=== PATIENT | male | born 1945 | race Two or more races ===

== ENCOUNTER 2018-11-19 19:18 | Inpatient (IN) | payer MEDICARE, OTHER ==
[~2018-11-19] VITALS: Ht 172.7 cm; Wt 75.7 kg
--- NOTE | 2018-11-19 19:20 | NUR ---
Pt bib ambulnz unit #[id number] from [facility] for medical clearance. Pt is on a 5150 hold for DTS. Upon assessment, patient is AAO x 4, calm and cooperative. Safety precautions implemented. Nursing supervisor blast furnace called for 1:1 sitter for safety. All belongings placed at nursing station. Will continue to monitor closely.
--- NOTE | 2018-11-19 19:30 | NUR ---
1:1 sitter at bedside for safety.
[2018-11-19] MEDS ORDERED: APIX5TAB4 PO (19:51)
[2018-11-19] MEDS ORDERED: MULT-331 PO (19:51)
[2018-11-19] MEDS ORDERED: THIA100T13 PO (19:51)
[2018-11-19] MEDS ORDERED: PANT40TA2 PO (19:51)
[2018-11-19] MEDS ORDERED: FOLI1TAB16 PO (19:51)
[2018-11-19] MEDS ORDERED: ACET-2154 PO (19:51)
[2018-11-19] MEDS ORDERED: CYAN10009 PO (19:51)
[2018-11-19] MEDS ORDERED: CHOL100043 PO (19:51)
[2018-11-19] MEDS ORDERED: ACETAMINOPHEN 325 MG TABLET PO PRN (20:45)
[2018-11-19] MEDS ORDERED: MAG HYDROX/AL HYDROX/SIMETH 30 ML LIQUID UDC PO PRN (20:45)
[2018-11-19] MEDS ORDERED: MAGNESIUM HYDROXIDE 30 ML LIQUID UDC PO PRN (20:45)
[2018-11-19] MEDS ORDERED: LORAZEPAM 0.5 MG TABLET PO PRN ×2 (20:45→21:45)
[2018-11-19] MEDS ORDERED: TEMAZEPAM 7.5 MG CAPSULE PO PRN (20:45)
--- NOTE | 2018-11-19 20:57 | NUR ---
Pt. admitted to [facility] , under care of Dr. Canada/Westley Belongs List completed
[2018-11-19 21:50] VITALS: BP 145/78
--- NOTE | 2018-11-19 22:00 | NUR ---
GPS: Admitted to unit earlier a 73 yr.old male in stable condition under the care of /GARFIELD Christy. Pt.is on a 72 hour hold for DTS/GD. Pt. lives at [facility] in [place] where he tried to commit suicide by lacerating his left forearm using a plastic knife. Pt.is A/O x4. Calm,cooperative and pleasant during admission process. Still c/o feeling depressed but contracts for safety when asked. 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 Pt's rights hand book and advisement handed to pt.at time of admission. Paperworks signed,personal belongings list completed and skin assessment completed. Psychiatrist and dinkey motor operator were both notified of pt's arrival to the unit. Pt.gave consent to notify pt's daughter "Charisma"of his admission to the unit. Left message on her voicemail. Will monitor closely. Suicide precautions observed.
[2018-11-20 07:30] VITALS: BP_SYST 109; BP_SYST 113; BP_DIAS 64; BP_DIAS 72
[2018-11-20] MEDS ORDERED: PNEUMOCOCCAL 23-VAL P-SAC VAC 0.5 ML VIAL IM ONE (10:00)
[2018-11-20 16:03] VITALS: BP 113/59
[2018-11-20] MEDS ORDERED: SERTRALINE HCL 50 MG TABLET PO SCH (17:00)
[2018-11-20] MEDS ORDERED: ACETAMINOPHEN 325 MG TABLET PO SCH (18:15)
[2018-11-20 20:30] VITALS: BP 130/65
[2018-11-21] MEDS: PANTOPRAZOLE SODIUM 40 MG TABLET.DR PO SCH (06:26)
[2018-11-21 07:13] LABS: BASOPHILS % (AUTO) 0.7 % (0.0-2.0); EOSINOPHILS # (AUTO) 0.4 K/uL (0.0-0.7); EOSINOPHILS % (AUTO) 6.4 % (0.0-7.0); HEMATOCRIT 37.3 % (36.7-47.1); HEMOGLOBIN 12.5 g/dL (12.5-16.3); LYMPHOCYTES # (AUTO) 2.1 K/uL (20.0-40.0); MEAN CORPUSCULAR HEMOGLOBIN 29.5 uug (23.8-33.4); MEAN CORPUSCULAR HGB CONC 33 g/dL (32.5-36.3); MEAN CORPUSCULAR VOLUME 88.3 fL (73.0-96.2); MONOCYTES # (AUTO) 0.3 K/uL (2.0-10.0); MONOCYTES % (AUTO) 5.4 % (0.0-11.0); NEUTROPHILS # (AUTO) 3.5 K/uL (1.8-8.9); NEUTROPHILS % (AUTO) 54.5 % (38.5-71.5); PLATELET COUNT (AUTO) 223 K/uL (152-348); RED BLOOD CELL COUNT(AUTO) 4.23 MIL/uL (4.06-5.63); WHITE BLOOD COUNT (AUTO) 6.4 K/uL (3.6-10.2)
[2018-11-21 07:33] LABS: ALANINE AMINOTRANSFERASE 13 U/L (16-63); ALKALINE PHOSPHATASE 111 U/L (50-136); ASPARTATE AMINOTRANSFERASE 11 U/L (15-37); BILIRUBIN,TOTAL 0.4 mg/dL (0.2-1.0); CARBON DIOXIDE 30 mmol/L (21-32); CHLORIDE 103 mmol/L (98-107); CREATININE 0.9 mg/dL (0.6-1.3); GLUCOSE 104 mg/dL (74-106); MAGNESIUM 1.8 mg/dL (1.8-2.4); PHOSPHOROUS 3.6 mg/dL (2.5-4.9); POTASSIUM 4.1 mmol/L (3.5-5.1)
[2018-11-21 08:16] LABS: UREA NITROGEN, BLOOD 15 mg/dL (7-18)
[2018-11-21 08:20] VITALS: BP 94/56
[2018-11-21] MEDS: CHOLECALCIFEROL 1,000 UNIT TABLET PO SCH ×2 (08:20→16:05)
[2018-11-21] MEDS: THIAMINE HCL 100 MG TABLET PO SCH (08:20)
[2018-11-21] MEDS: CYANOCOBALAMIN 1,000 MCG TABLET PO SCH (08:20)
[2018-11-21] MEDS: FOLIC ACID 1 MG TABLET PO SCH (08:20)
[2018-11-21] MEDS ORDERED: APIXABAN 5 MG TABLET PO ONE (09:00)
[2018-11-21 16:00] VITALS: BP 108/53
[2018-11-21] MEDS: SERTRALINE HCL 50 MG TABLET PO SCH (16:05)
[2018-11-21] MEDS: APIXABAN 5 MG TABLET PO SCH (16:07)
[2018-11-21 19:56] VITALS: BP 106/50
[2018-11-22] MEDS: PANTOPRAZOLE SODIUM 40 MG TABLET.DR PO SCH (06:46)
[2018-11-22 07:30] VITALS: BP 97/67
[2018-11-22] MEDS: CHOLECALCIFEROL 1,000 UNIT TABLET PO SCH ×2 (08:35→16:55)
[2018-11-22] MEDS: FOLIC ACID 1 MG TABLET PO SCH (08:35)
[2018-11-22] MEDS: THIAMINE HCL 100 MG TABLET PO SCH (08:35)
[2018-11-22] MEDS: APIXABAN 5 MG TABLET PO SCH ×2 (08:36→16:57)
[2018-11-22] MEDS: CYANOCOBALAMIN 1,000 MCG TABLET PO SCH (08:53)
--- NOTE | 2018-11-22 12:39 | NUR ---
Initial DC Instructions: Patient is a current resident at [facility] [[address] [facility], [place] [address]; [phone]]. Per pt, he does not want to return there, but instead would like to move to [place] with his "friend" and live with him. When asked about who the friend is, pt stated, "I don't want to disclose that information." SW provided education about SW role and the necessity for a safe discharge plan. Spoke with patient's daughter, Charisma ([phone]) who reports that she is DPOA for Healthcare for the patient. SW requested paperwork. Per daughter, the pt has long drug/ETOH abuse history and expressed concern that if pt moves to [place] with his friend, then he will continue to use there and stop taking his medications. Spoke with Carline Strauss at [facility] ([phone]) who states that the patient is welcome back to their facility when pt is stable for discharge. SW will continue to collaborate with pt, family, and MD regarding most appropriate discharge plans for this patient. SW will form a safe and proper discharge.
[2018-11-22 15:18] VITALS: BP 131/55
--- NOTE | 2018-11-22 15:53 | NUR ---
Firearms Report: ABBY completed and submitted [employer] Firearms report for 5150 DTS and GD certifications.
[2018-11-22] MEDS: SERTRALINE HCL 50 MG TABLET PO SCH (16:55)
[2018-11-22 20:03] VITALS: BP 145/96
[2018-11-23] MEDS: PANTOPRAZOLE SODIUM 40 MG TABLET.DR PO SCH (06:32)
[2018-11-23 07:30] VITALS: BP 107/71
[2018-11-23] MEDS: THIAMINE HCL 100 MG TABLET PO SCH (08:40)
[2018-11-23] MEDS: CHOLECALCIFEROL 1,000 UNIT TABLET PO SCH ×2 (08:40→17:16)
[2018-11-23] MEDS: CYANOCOBALAMIN 1,000 MCG TABLET PO SCH (08:40)
[2018-11-23] MEDS: FOLIC ACID 1 MG TABLET PO SCH (08:40)
[2018-11-23] MEDS: APIXABAN 5 MG TABLET PO SCH ×2 (08:41→17:21)
[2018-11-23 16:14] VITALS: BP 132/58
[2018-11-23] MEDS ORDERED: SERTRALINE HCL 50 MG TABLET PO SCH (17:00)
[2018-11-23 20:08] VITALS: BP 136/71
[2018-11-24] MEDS: PANTOPRAZOLE SODIUM 40 MG TABLET.DR PO SCH (06:42)
[2018-11-24 07:30] VITALS: BP 122/47
[2018-11-24] MEDS: APIXABAN 5 MG TABLET PO SCH ×2 (08:43→16:17)
[2018-11-24] MEDS: CYANOCOBALAMIN 1,000 MCG TABLET PO SCH (08:45)
[2018-11-24] MEDS: THIAMINE HCL 100 MG TABLET PO SCH (08:45)
[2018-11-24] MEDS: FOLIC ACID 1 MG TABLET PO SCH (08:45)
[2018-11-24] MEDS: CHOLECALCIFEROL 1,000 UNIT TABLET PO SCH ×2 (08:45→16:16)
[2018-11-24] MEDS: SERTRALINE HCL 50 MG TABLET PO SCH ×2 (12:49→16:16)
--- NOTE | 2018-11-24 15:52 | NUR ---
DC Planning Note: SW met with patient at bedside to discuss discharge planning. Patient reported that he does not want to return to his [facility] [Address: [address] [place] [address]; ] stating, "That place is going to kill me...being locked up there is no place to live." SW provided opportunity for pt to express his concerns and ventilate his feelings. SW explored placement options with him including SNF vs. B&C placement. Patient refused. Patient reports that he would like to live with his friend, "Eric" in [place]. When SW inquired about Eric's contact information and address, pt stated, "He [Eric] doesn't want to be bothered by hospitals." SW provided education on need for safe discharge plan that includes where he is going and lathe operator contact lens, and pt stated, "I will sign whatever you want me to sign so that I can leave here." Pt reported that he would be willing to call "Eric" to find out his address and stated that he will provide it to the SW when he has it. SW assisted the pt in retrieving his phone from the safe. SW to follow-up with pt in the morning about Eric's address. ABBY alerted History Teacher, Sharon Harmon, as well. ABBY will continue to follow-up.
[2018-11-24 16:00] VITALS: BP 109/51
--- NOTE | 2018-11-24 17:00 | NUR ---
Process Group Note: Patients were asked to answer the question of "What is one thing you would change about yourself and why? Subjective: "..." Objective: Patient was asleep in bed and unable to be woken up to attend group. Assessment: Patient will need encouragement to attend group more often. Plan: Encourage group attendance as scheduled. tailings worker will continue to ask patient to attend group.
[2018-11-24 20:00] VITALS: BP 158/71
[2018-11-25] MEDS: PANTOPRAZOLE SODIUM 40 MG TABLET.DR PO SCH (06:24)
--- NOTE | 2018-11-25 06:52 | NUR ---
PATIENT SLEPT FOR APPROX 7HRS THROUGH THE NIGHT. PICTURE WAS TAKEN OF HIS LEFT FOREARM ANTERIOR ASPECT WOUND: APPROX 6CM LONG HEALING WELL, NO SWELLING NO DISCHARGE WERE APPRECIATED. NO S/S OF INFECTION WERE NOTED. PATIENT DENIED PAIN OR DISCOMFORT. MEDICATION COMPLIANT, LOW MOOD, BLUNTED AFFECT, WITHDRAWN, PLEASANT AND COOPERATIVE UPON APPROACHED. WILL CONTINUE TO MONITOR.
[2018-11-25 07:30] VITALS: BP 129/48
[2018-11-25] MEDS: FOLIC ACID 1 MG TABLET PO SCH (08:13)
[2018-11-25] MEDS: THIAMINE HCL 100 MG TABLET PO SCH (08:13)
[2018-11-25] MEDS: CHOLECALCIFEROL 1,000 UNIT TABLET PO SCH ×2 (08:14→16:20)
[2018-11-25] MEDS: CYANOCOBALAMIN 1,000 MCG TABLET PO SCH (08:14)
[2018-11-25] MEDS: APIXABAN 5 MG TABLET PO SCH ×2 (08:15→16:54)
--- NOTE | 2018-11-25 10:27 | NUR ---
DC Planning: At 0950: ABBY and SS Director, Sharon attempted to contact patient's daughter, Charisma ([phone]) to request for DPOA paperwork again. There was no answer and SW left a message for a return call. At 1015: Spoke with Rocio at pt's [facility] ([phone]). SW inquired about pt's dementia diagnosis, Physician's Report, and DPOA. Per Rocio, the patient was diagnosed with dementia in July 2018 while he was at the DC hospital. During that time, Rocio reports that the DC appointed pt's daughter, Charisma to be responsible for his healthcare decisions. ABBY asked Rocio to fax those documents to the hospital, and she was agreeable. SW awaiting fax and will continue to follow-up.
[2018-11-25] MEDS: SERTRALINE HCL 50 MG TABLET PO SCH ×2 (12:04→16:20)
[2018-11-25 16:00] VITALS: BP 119/64
--- NOTE | 2018-11-25 18:12 | NUR ---
Patient has been cooperative throughout shift. Compliant with medical care, medication regime. Continues to have a flat affect but able to communicate thoroughly. Denies any thoughts of harming self or harming others. Verbalizes that he really wants to go home. Patient called his friend named Eric that lives in [place] and retrieved address. Case management notified. Safety measures implemented. will continue to monitor until end of shift.
--- NOTE | 2018-11-25 20:15 | NUR ---
RECEIVED PATIENT IN THE DAY ROOM WATCHING TV. HE IS NOTED CALM AND PLEASANT. SEEMS TO ENJOY WATCHING TV WITH ANOTHER PEER. HE IS NOTED LESS WITHDRAWN LESS DEPRESSED, HE IS ABLE TO VERBALIZED FEELINGS. DENIES SI/HI. DENIES AH/VH ABLE TO CFS. FAIR INSIGHT NOTED. PATIENT WAS REASSURED FOR HIS SAFETY. WILL CONTINUE TO MONITOR.
[2018-11-25 21:33] VITALS: BP 121/61
[2018-11-26] MEDS: PANTOPRAZOLE SODIUM 40 MG TABLET.DR PO SCH (07:00)
[2018-11-26 07:30] VITALS: BP 149/58
[2018-11-26] MEDS: CYANOCOBALAMIN 1,000 MCG TABLET PO SCH (09:04)
[2018-11-26] MEDS: THIAMINE HCL 100 MG TABLET PO SCH (09:04)
[2018-11-26] MEDS: CHOLECALCIFEROL 1,000 UNIT TABLET PO SCH ×2 (09:04→16:09)
[2018-11-26] MEDS: FOLIC ACID 1 MG TABLET PO SCH (09:04)
[2018-11-26] MEDS: APIXABAN 5 MG TABLET PO SCH ×2 (09:06→16:11)
[2018-11-26] MEDS: SERTRALINE HCL 50 MG TABLET PO SCH (12:59)
[2018-11-26] MEDS ORDERED: SERTRALINE HCL 50 MG TABLET PO ONE (13:15)
--- NOTE | 2018-11-26 14:40 | NUR ---
Discharge Planning: carnival worker called and spoke with patient friend, Eric [[facility], [place] [address]; [phone]. Per patient, he states that he can go and live with Eric in [place], [place] once discharged. Per Eric, he states that he is a long time friend of patient, even referring to him as his "brother". Eric did confirm that patient can live with him once discharged, but stressed that he will not be a "human service technician" for patient and that if patient did come to live with him, that patient would be solely responsible for himself. Eric states that patient would have to follow "house rules", pay rent of $100/month, be self-responsible for food, and would not be allowed to do drugs or drink in excess. Per Eric, if patient would be unable to follow these rules, he states that patient would be "kicked out' of his home. carnival worker will follow-up with Eric after conversation with patient. carnival worker then went to speak with patient with Dr. Canada. Dr. Canada and adoption social worker informed patient that being discharged to [facility] would not be possible due to patient mental status [i.e. vascular dementia & history of a stroke]. Patient was told because his daughter, Charisma ([phone]), has DPOA, that he would have to be discharged back to his [facility], [facility] ([phone]). Patient was accepting of information and plan. Patient was then told that once he is at [facility] he could make arrangements with his daughter and Eric to go and live with Eric. Patient accepting of information. carnival worker called and left voicemail with Eric requesting return call.
[2018-11-26 16:00] VITALS: BP 133/77
[2018-11-26 20:27] VITALS: BP 112/68
[2018-11-27] MEDS: PANTOPRAZOLE SODIUM 40 MG TABLET.DR PO SCH (06:31)
[2018-11-27 07:30] VITALS: BP 143/66
[2018-11-27] MEDS: FOLIC ACID 1 MG TABLET PO SCH (08:57)
[2018-11-27] MEDS: THIAMINE HCL 100 MG TABLET PO SCH (08:57)
[2018-11-27] MEDS: CYANOCOBALAMIN 1,000 MCG TABLET PO SCH (08:57)
[2018-11-27] MEDS: CHOLECALCIFEROL 1,000 UNIT TABLET PO SCH ×2 (08:57→16:57)
[2018-11-27] MEDS: APIXABAN 5 MG TABLET PO SCH ×2 (09:19→17:01)
[2018-11-27] MEDS: SERTRALINE HCL 50 MG TABLET PO SCH (12:37)
[2018-11-27 16:00] VITALS: BP 99/57
[2018-11-27 21:41] VITALS: BP 118/64
[2018-11-28] MEDS: PANTOPRAZOLE SODIUM 40 MG TABLET.DR PO SCH (06:19)
[2018-11-28 07:30] VITALS: BP_SYST 106; BP_SYST 131; BP_DIAS 61; BP_DIAS 62
[2018-11-28] MEDS: CHOLECALCIFEROL 1,000 UNIT TABLET PO SCH ×2 (09:49→18:09)
[2018-11-28] MEDS: THIAMINE HCL 100 MG TABLET PO SCH (09:49)
[2018-11-28] MEDS: CYANOCOBALAMIN 1,000 MCG TABLET PO SCH (09:49)
[2018-11-28] MEDS: FOLIC ACID 1 MG TABLET PO SCH (09:49)
[2018-11-28] MEDS: APIXABAN 5 MG TABLET PO SCH ×2 (09:53→18:08)
[2018-11-28] MEDS: SERTRALINE HCL 50 MG TABLET PO SCH (13:34)
[2018-11-28 16:00] VITALS: BP 133/66
[2018-11-28 20:00] VITALS: BP 127/61
[2018-11-29] MEDS: PANTOPRAZOLE SODIUM 40 MG TABLET.DR PO SCH (06:23)
--- NOTE | 2018-11-29 06:51 | NUR ---
GPS: Remain calm and cooperative with medications and care. slept 7 hrs through the night after sleeping meds given. no c/o pain or discomfort at this time. Addendum: 11/29/18 at 0659 by FRANKO COWART LVN no sleeping meds given to this patient. wrong charting.
[2018-11-29 07:30] VITALS: BP 133/57
[2018-11-29] MEDS: CHOLECALCIFEROL 1,000 UNIT TABLET PO SCH (08:17)
[2018-11-29] MEDS: FOLIC ACID 1 MG TABLET PO SCH (08:17)
[2018-11-29] MEDS: CYANOCOBALAMIN 1,000 MCG TABLET PO SCH (08:17)
[2018-11-29] MEDS: THIAMINE HCL 100 MG TABLET PO SCH (08:17)
[2018-11-29] MEDS: APIXABAN 5 MG TABLET PO SCH (08:18)
--- NOTE | 2018-11-29 10:20 | NUR ---
DC Note: Patient will be discharged back to his [facility] Facility, [facility] [Address: [address] [place] [address]; ] via tax. Please arrange a taxi for this patient. Spoke with Monica, the Germination Testing Manager at the Facility, who states they are ready to accept the patient today. Spoke to patients daughter, Charisma ([phone]) who is aware and agreeable with discharge plan. Patient is aware and agreeable with discharge plan, denies any SI/HI, and appears to be in a euthymic mood with congruent affect. Patient will continue to follow-up at the facility with his Primary Care Physician, Dr. Omer Vasquez [[address] [facility] [address] [place] [address]; ]. Patient will also continue to follow-up at the facility with his Psychiatrist, Dr. Brianda Crawford [Address: [address] [place] [address]; ]. Patient was provided with a brief substance abuse intervention and was provided with outpatient substance abuse treatment referrals to [facility] , [facility] , and [facility] . For smoking cessation, patient was referred to [employer] 800-LUNGUSA and [employer] [phone]. Patient was encouraged to attend a Nicotine Anonymous Telephone Meeting on Friday, November 30, 2018 @ 6:15pm (ph. [phone]; PIN [phone]). Patient was provided with outpatient mental health resources to [facility] Crisis Line , Elva Salgado , and the National Suicide Prevention Lifeline . Addendum: 11/29/18 at 1142 by JAC GREGORY UPDATE: Patient will be transported vis [email or web address] at 3pm. ABBY spoke with Luma at [email or web address] ([phone]) who confirmed the transportation time. BYRON orozco.
[2018-11-29] MEDS: SERTRALINE HCL 50 MG TABLET PO SCH (12:44)
--- NOTE | 2018-11-29 15:15 | NUR ---
GPS: Nursing Notes: Discharge Notes: Patient is awake and responding to his name, cooperative with nursing care, needs prompting with ADL's, compliant with his medications, denies any SI/HI, denies any any AH/VH, denies any SOB, forgetful at times, discharge to [facility] at [address] [facility], [place] [address] , report given to nurse, Evy, took all his belongings with him, picked up by [facility] [employer] . Patient will continue to follow-up at the facility with his Primary Care Physician, Dr. Omer Vasquez [[address] [facility] [address], [place] [address]; ]. Patient will also continue to follow-up at the facility with his Psychiatrist, Dr. Brianda Crawford [Address: [address] [place] [address]; ]. Patient was provided with a brief substance abuse intervention and was provided with outpatient substance abuse treatment referrals to [facility] [address] [facility] , [facility] , and [facility] . For smoking cessation, patient was referred to [employer] 800-LUNGUSA and [employer] [phone]. Patient was encouraged to attend a Nicotine Anonymous Telephone Meeting on Friday, November 30, 2018 @ 6:15pm (ph. [phone]; PIN [phone]#). Patient was provided with outpatient mental health resources to [facility] Crisis Line , Elva Salgado , and the National Suicide Prevention Lifeline .
== END 2018-11-29 15:15 | DRG 885 ==
LOC: ER 19:38 → GPS 20:50
PROVIDERS: ADMIT Psychiatry & Neurology Psychosomatic Medicine; ATTEND Nurse Practitioner Acute Care
PROC: 0HBRXZZ Excision of Toe Nail, External Approach (ICD-10-PCS; principal; 2018-11-23)
DX: F32.2 Major depressive disorder, single episode, severe without psychotic features (principal); E44.1 Mild protein-calorie malnutrition; S51.812D Laceration without foreign body of left forearm, subsequent encounter; X78.1XXD Intentional self-harm by knife, subsequent encounter; F03.90 Unspecified dementia, unspecified severity, without behavioral disturbance, psychotic disturbance, mood disturbance, and anxiety; K21.9 Gastro-esophageal reflux disease without esophagitis; Z79.01 Long term (current) use of anticoagulants; Z86.73 Personal history of transient ischemic attack (TIA), and cerebral infarction without residual deficits; E78.5 Hyperlipidemia, unspecified; I48.0 Paroxysmal atrial fibrillation; I10 Essential (primary) hypertension; M19.072 Primary osteoarthritis, left ankle and foot; I73.9 Peripheral vascular disease, unspecified; L84 Corns and callosities; R26.2 Difficulty in walking, not elsewhere classified; Z62.890 Parent-child estrangement NEC
CPT/HCPCS: 36415; 71045; 83735; 84100; 85025; 90732; 93005; A4663